=== PATIENT | female | born 1985 | race Two or more races ===

== ENCOUNTER 2021-05-24 12:41 | Emergency (ER) | payer OTHER ==
[~2021-05-24] VITALS: Ht 157.5 cm; Wt 81.6 kg
[2021-05-24] MEDS ORDERED: EFFEXOR XR150 MG PO (13:28)
[2021-05-24] MEDS ORDERED: PRENATABS RX T1 EACH PO (13:28)
== END 2021-05-24 19:31 ==
LOC: ER 12:41
DX: B34.9 Viral infection, unspecified (principal); Z20.822 Contact with and (suspected) exposure to COVID-19

== ENCOUNTER 2021-10-22 11:18 | Outpatient (CLI) | payer OTHER ==
[~2021-10-22 11:18] MED LIST: EFFEXOR XR150 MG PO; PRENATABS RX T1 EACH PO
== END 2021-10-22 11:34 | disposition home or self-care (01) ==
LOC: NST 11:18
PROVIDERS: ATTEND Obstetrics & Gynecology
DX: Z34.82 Encounter for supervision of other normal pregnancy, second trimester (principal)

== ENCOUNTER → 2021-11-02 | Outpatient (CLI) | payer OTHER | END | disposition home or self-care (01) | LOC: NST 09:38 | PROVIDERS: ATTEND Obstetrics & Gynecology | DX: Z34.83 Encounter for supervision of other normal pregnancy, third trimester (principal) ==

== ENCOUNTER 2022-01-11 15:10 | Outpatient (CLI) | payer OTHER | END 2022-01-11 16:47 | disposition home or self-care (01) | LOC: NST 15:10 | PROVIDERS: ATTEND Obstetrics & Gynecology | DX: Z34.83 Encounter for supervision of other normal pregnancy, third trimester (principal) ==

== ENCOUNTER 2022-01-17 10:03 | Inpatient (IN) | payer OTHER ==
[~2022-01-17] VITALS: Ht 157.5 cm; Wt 2.7 kg
== END 2022-01-19 13:31 | disposition home or self-care (01) | DRG 788 ==
LOC: LDR 10:03 → OB/GYN 10:03
PROVIDERS: ADMIT Obstetrics & Gynecology; ATTEND Obstetrics & Gynecology
PROC: 4A1HXCZ Monitoring of Products of Conception, Cardiac Rate, External Approach (ICD-10-PCS; 2022-01-17)
PROC: 10D00Z1 Extraction of Products of Conception, Low, Open Approach (ICD-10-PCS; principal; 2022-01-17 19:45)
DX: O62.0 Primary inadequate contractions (principal); Z3A.38 38 weeks gestation of pregnancy; Z37.0 Single live birth; Z20.822 Contact with and (suspected) exposure to COVID-19

== ENCOUNTER 2022-06-21 15:50 | Emergency (ER) | payer OTHER ==
[~2022-06-21] VITALS: Ht 157.5 cm; Wt 90.7 kg
[2022-06-21] MEDS ORDERED: SERTRALINE HCL50 MG PO (16:01)
== END 2022-06-21 19:36 | disposition home or self-care (01) ==
LOC: ER 15:50
DX: J06.9 Acute upper respiratory infection, unspecified (principal); Z20.822 Contact with and (suspected) exposure to COVID-19